=== PATIENT | male | born 1960 | race Caucasian/White ===

== ENCOUNTER 2017-02-08 02:29 | Inpatient (IN) | payer OTHER ==
[~2017-02-08] VITALS: Ht 188 cm; Wt 146.6 kg
[2017-02-08] VITALS (10 sets, daily range): BP systolic 128–187; BP diastolic 82–116
--- NOTE | ~2017-02-08 | WRIGHTHP ---
[place], [place] PATIENT HISTORY AND PHYSICAL EXAM NAME: HERBERT TAVERAS [facility] #: [id number] UNIT #: [id number] ROOM: 407 DOCTOR: USKHJINDER SMITH MD BIRTHDATE: [birth year] DOS: 02/08/2017 HISTORY OF PRESENT ILLNESS: This patient is 56 years old, presents with abdominal pain, which started just a couple of hours prior to admission. He denies having any chest pains, palpitations, shortness of breath. Does not have any nausea, any emesis. He arrived in the emergency room, had a workup initiated by the ER and was found to have acute pancreatitis and was admitted. Morning, the patient states that the pain medication is wearing off, but did help him. He does not have any other complaints. He is anxious to eat. PAST MEDICAL HISTORY: Significant for: 1. Type 2 diabetes mellitus. 2. Benign hypertension. MEDICATIONS: He is currently on are glipizide 5 daily, metformin 500 b.i.d., metoprolol 25 b.i.d., lisinopril 20 daily, levothyroxine 25 mcg daily. SOCIAL HISTORY: Nonsmoker, does not use any alcohol. PHYSICAL EXAMINATION: GENERAL: The patient is awake and alert and oriented, in no distress. VITAL SIGNS: Graphic trend shows pressure 142/70, pulse of 68, respirations 14. LUNGS: Diminished breath sounds, clear. HEART: Regular. ABDOMEN: Obese, soft, some very mild diffuse tenderness present. EXTREMITIES: Without any edema. LABORATORY DATA: At the time of admission, WBC count is 12.4, hemoglobin 15.0, hematocrit 42.0, lactic acid 1.4. Ketone is negative. Hemoglobin A1c was 8.2. Comprehensive glucose 266, BUN 15, creatinine 1.8. Sodium 132, potassium 3.9, chloride 96, bicarbonate 28. Lipase 575. C-reactive protein 12.60. Chest x-ray shows left lower lobe atelectasis. CT of the abdomen and pelvis shows some linear stranding around the pancreatic head suggestive of mild mesenteric edema and mild pancreatitis. ASSESSMENT AND PLAN: 1. The patient presents with abdominal pain, elevated lipase and CT findings with evidence of pancreatitis. The patient to be kept n.p.o., IV fluids, IV pain medications. Consultation with Dr. Medel has been obtained. I do not see any gallstones or biliary disease, which could be causing this pancreatitis, but we will wait for Dr. Medel for his opinion. 2. Type 2 diabetes mellitus, insulin-dependent, poorly controlled. We will hold off on the medication since he is n.p.o. 3. Benign hypertension, controlled. We will also check a triglyceride level in the morning. [place], [place] PATIENT HISTORY AND PHYSICAL EX[id number] [facility] #: [id number] ROOM: [facility] DOCTOR: SUKHJINDER SMITH MD BIRTHDATE: [birth year] SUKHJINDER SMITH MD CM:HISPHYS:PATIENT HISTORY AND PHYSICAL EXAMINATION [id number] SUKHJINDER SMITH MD 02/08/17 0942 interface
--- NOTE | ~2017-02-08 | DS ---
[place], [place] DISCHARGE SUMMARY [facility] [id number] UNIT #: [id number] ROOM: 407 DOCTOR: SUKHJINDER SMITH MD BIRTHDATE: [birth year] DOS: 02/10/2017 DIAGNOSES: 1. Acute pancreatitis. 2. Type 2 diabetes mellitus. 3. Hypertriglyceridemia. 4. Periumbilical hernia of omentum 5. Benign hypertension. MEDICATIONS: Same as on admission, which are glipizide 5 daily, levothyroxine 25 mcg daily, metformin 500 b.i.d., metoprolol 25 b.i.d., lisinopril 20 daily. HOSPITAL COURSE: The patient is 56 who presents with complaints of abdominal pain. Please refer to [facility] for details. The patient was evaluated. Amylase and lipase were done in the Emergency Room along with a CT scan, which showed the presence of pancreatitis. No gallstones were seen. After admission, the patient was kept on IV fluids and n.p.o. Next day morning amylase and lipase were both normal. The patient was started on a diet. He has tolerated diet and has not had any new problems. The plan is therefore to discharge him to home. Follow up as an outpatient. SUKHJINDER SMITH MD CM:DISCHARG [id number] SUKHJINDER SMITH MD 02/10/17 1010 interface
--- NOTE | ~2017-02-08 | PR ---
[place], [place] PROGRESS NOTE [id number] #: [id number] ROOM: 407 DOCTOR: SUKHJINDER SMITH MD BIRTHDATE: [birth year] DOS: SUBJECTIVE: The patient is doing fine without any complaints. OBJECTIVE: VITAL SIGNS: Graphic trend shows blood pressure 127/82, pulse of 75, respirations 20, temperature 98.2. LUNGS: Diminished breath sounds, clear. HEART: Regular. ABDOMEN: Obese, soft, nontender. EXTREMITIES: Without any edema. ASSESSMENT AND PLAN: 1. Acute pancreatitis, possibly from triglyceride elevation. The patient's amylase and lipase have come back down to normal. Plan is to repeat them tomorrow. We will start him on ADA diet and if there is no further worsening in the labs; plan is to discharge him to home. 2. Type 2 diabetes mellitus. We will restart his medications since he is going to restart his diet. SUKHJINDER SMITH MD CM:PNTRANS [id number] SUKHJINDER SMITH MD 02/09/17 1115 interface
--- NOTE | ~2017-02-08 | PR ---
[place], [place] PROGRESS NOTE [id number] UNIT #: [id number] ROOM: 407 DOCTOR: SUKHJINDER SMITH MD BIRTHDATE: [birth year] DOS: SUBJECTIVE: The patient is doing fine without any complaints. He does not have any more abdominal pain, had a good breakfast. OBJECTIVE: VITAL SIGNS: Blood pressure is 136/79, pulse of 73, respirations 20, temperature 97.8. LUNGS: Clear. HEART: Regular. ABDOMEN: Obese, soft, nontender. ASSESSMENT AND PLAN: 1. Acute pancreatitis, resolved. The patient is tolerating a diet. 2. Type 2 diabetes mellitus, controlled. 3. Benign hypertension, controlled. Plan is to discharge home today. SUKHJINDER SMITH MD CM:PNTRANS [id number] SUKHJINDER SMITH MD 02/10/17 1045 interface
[2017-02-08 03:38] LABS: BASO % 0.3 % (0.0-1.0); EOS # 0.1 10*3/uL (0.0-0.4); LYMPH # 1.2 10*3/uL (1.3-4.4); LYMPH % 9.5 % (27.0-41.0); MEAN CORPUSCULAR HGB 29.6 pg (27.0-31.0); MEAN CORPUSCULAR HGB CONC 35.7 g/dl (33.0-37.0); MEAN PLATELET VOLUME 10.3 fl (9.6-12.3); MONO # 1.2 10*3/uL (0.1-1.0); MONO % 9.6 % (3.0-9.0); NEUT # 9.8 10*3/uL (2.3-7.9); NEUT % 78.8 % (47.0-73.0); PLATELET COUNT AUTOMATED 191 10*3/uL (130-400); RED BLOOD COUNT 5.06 10*6/uL (4.50-5.90); RED CELL DISTRI WIDTH 12.1 % (0-14.5); WHITE BLOOD COUNT 12.4 10*3/uL (4.8-10.8)
[2017-02-08 04:18] LABS: ALBUMIN 3.2 gm/dl (3.1-4.5); ALKALINE PHOSPHATASE 117 U/L (45-117); BUN 15 mg/dl (7-24); CHLORIDE 96 mmol/L (98-107); CREATININE 1.08 mg/dL (0.70-1.30); LIPASE 575 U/L (73-393); POTASSIUM 3.9 mmol/L (3.5-5.1); SGOT/AST 9 IU/L (3-35); SGPT/ALT 35 U/L (12-78); SODIUM 132 mmol/L (136-145); TOTAL PROTEIN 8.2 gm/dL (6.4-8.2); TROPONIN I 0.022 ng/ml (<0.045)
[2017-02-08 04:36] LABS: BILIRUBIN NEGATIVE (NEGATIVE); BLOOD TRACE-INTACT (NEGATIVE); CLARITY SL CLOUDY (CLEAR); COLOR YELLOW (YELLOW); GLUCOSE 3+ (NEGATIVE); KETONE NEGATIVE (NEGATIVE); LEUKO ESTERASE NEGATIVE (NEGATIVE); NITRITE NEGATIVE (NEGATIVE); UROBILINOGEN 0.2 E.U./dl (0.2-1.0)
[2017-02-08] MEDS ORDERED: GLIPIZIDE5 MG PO (06:43)
[2017-02-08] MEDS ORDERED: SYNTHROID25 MCG PO (06:44)
[2017-02-08] MEDS ORDERED: METFORMIN500 MG PO (06:45)
[2017-02-08] MEDS ORDERED: LOPRESSOR25 MG PO (06:46)
[2017-02-08] MEDS ORDERED: LISINOPRIL20 MG PO (06:47)
[2017-02-09] VITALS: BP 127/82
[2017-02-09 06:53] LABS: CHOLESTEROL 142 mg/dL (<200); LIPASE 221 U/L (73-393); TRIGLYCERIDES 255 mg/dl (<150); VLDL CHOLESTEROL 51 mg/dL (6-40)
[2017-02-09 06:56] LABS: HDL CHOLESTEROL 32 mg/dl (40-60); LDL CHOLESTEROL 59 mg/dL (9-159)
[2017-02-09 08:00] VITALS: BP 135/84
[2017-02-09 12:00] VITALS: BP 154/60
[2017-02-09 16:00] VITALS: BP 117/69
[2017-02-09 20:00] VITALS: BP 146/92
[2017-02-10] VITALS: BP 140/88
[2017-02-10 08:00] VITALS: BP 136/79
== END 2017-02-10 09:44 | disposition home or self-care (01) | DRG 440 ==
LOC: ED 02:29 → EDHOLD 03:45 → 4E 06:18
PROVIDERS: Emergency Medicine Emergency Medical Services; ADMIT Internal Medicine
DX: K85.90 Acute pancreatitis without necrosis or infection, unspecified (principal); E11.65 Type 2 diabetes mellitus with hyperglycemia; E78.1 Pure hyperglyceridemia; K42.9 Umbilical hernia without obstruction or gangrene; I10 Essential (primary) hypertension; Z79.899 Other long term (current) drug therapy; Z88.0 Allergy status to penicillin; Z79.84 Long term (current) use of oral hypoglycemic drugs

== ENCOUNTER → 2019-02-08 | Outpatient (CLI) | payer OTHER ==
[~2019-02-08] MED LIST: GLIPIZIDE5 MG PO; LISINOPRIL20 MG PO; LOPRESSOR25 MG PO; METFORMIN500 MG PO; SYNTHROID25 MCG PO
[2019-02-08 12:22] LABS: BASO % 0.3 % (0.0-1.0); EOS # 0.1 10*3/uL (0.0-0.4); EOS % 1.7 % (1.0-4.0); HEMATOCRIT 43.9 % (42.0-52.0); HEMOGLOBIN 15.5 g/dl (14.0-18.0); LYMPH % 26.8 % (27.0-41.0); MEAN CELL VOLUME 88.7 fl (80.0-94.0); MEAN CORPUSCULAR HGB 31.3 pg (27.0-31.0); MEAN CORPUSCULAR HGB CONC 35.3 g/dl (33.0-37.0); MEAN PLATELET VOLUME 10.6 fl (9.6-12.3); MONO # 0.5 10*3/uL (0.1-1.0); NEUT # 4.6 10*3/uL (2.3-7.9); NEUT % 63.6 % (47.0-73.0); PLATELET COUNT AUTOMATED 210 10*3/uL (130-400); RED BLOOD COUNT 4.95 10*6/uL (4.50-5.90); RED CELL DISTRI WIDTH 12.2 % (0-14.5); WHITE BLOOD COUNT 7.3 10*3/uL (4.8-10.8)
[2019-02-08 13:29] LABS: ALBUMIN 3.5 gm/dl (3.1-4.5); ALKALINE PHOSPHATASE 132 U/L (45-117); BUN 13 mg/dl (7-24); CHLORIDE 103 mmol/L (98-107); SGOT/AST 30 IU/L (3-35); SGPT/ALT 32 U/L (12-78); SODIUM 136 mmol/L (136-145); TOTAL PROTEIN 7.6 gm/dL (6.4-8.2)
[2019-02-08 13:31] LABS: FREE T4 0.95 ng/dl (0.76-1.46)
[2019-02-08 13:33] LABS: CHOLESTEROL 177 mg/dL (<200); HDL CHOLESTEROL 24 mg/dl (40-60); TRIGLYCERIDES 926 mg/dl (<150)
[2019-02-08 13:34] LABS: POTASSIUM 4.7 mmol/L (3.5-5.1)
[2019-02-08 13:41] LABS: VITAMIN D, 25-HYDROXY 15.2 ng/mL (30-100)
== END | disposition home or self-care (01) ==
LOC: LAB 11:53
PROVIDERS: Internal Medicine
DX: M25.561 Pain in right knee (principal); M25.562 Pain in left knee; E11.65 Type 2 diabetes mellitus with hyperglycemia; I10 Essential (primary) hypertension; E55.9 Vitamin D deficiency, unspecified; E78.2 Mixed hyperlipidemia; Z00.00 Encounter for general adult medical examination without abnormal findings